=== PATIENT | female | born 1935 | race Caucasian/White ===

== ENCOUNTER 2021-08-27 13:25 | Inpatient (IN) | payer MEDICARE, MEDICAID, SELFPAY ==
[2021-08-27] VITALS (18 sets, daily range): BP systolic 91–142; BP diastolic 54–81; PULSE 57–87; RESP 18–27; TEMP 36.2–36.6; O2SAT 90–96; BMI 24.9; BMI 23.8
--- NOTE | 2021-08-27 13:27 | XRR_ITS ---
PROCEDURE INFORMATION: Exam: XR Chest Exam date and time: 08/27/2021 1:56 PM Age: 86 years old Clinical indication: Other: AMS TECHNIQUE: Imaging protocol: XR of the chest. Views: 1 view. COMPARISON: No relevant prior studies available. FINDINGS: Lungs: Bilateral prominence of bronchovascular markings possibly mild heart failure and edema. No focal consolidations. Pleural spaces: Unremarkable. No pleural effusion. No pneumothorax. Heart/Mediastinum: Cardiomegaly. Bones/joints: Unremarkable. XR/XR chest 1V portable [id number] IMPRESSION: Questionable mild heart failure or fluid overload.
--- NOTE | 2021-08-27 13:27 | CT_ITS ---
WS: [id number] CT HEAD TECHNIQUE: Noncontrast CT of the head obtained from the skullbase to the vertex. CLINICAL INFORMATION: ams COMPARISON: None. DLP: 1171.[address] scans at [facility] use at least one of these dose optimization techniques: automated e xposure control; mA and/or kV adjustment per patient size (includes targeted exams where dose is matc hed to clinical indication); or iterative reconstruction. FINDINGS: Images degraded by patient motion. No evidence of intracranial hemorrhage or mass effect. Ventricular system and basal cisterns are holm nt. Moderate small vessel changes with moderate parenchymal volume loss. Intracranial vascular calcif ication. Chronic lacunar infarcts in the LEFT pinon radiata. Paranasal sinuses and mastoid air cells are well aerated. .Normal visualized soft tissues. CT/CT head wo con* [id number] IMPRESSION: 1. No evidence of intracranial hemorrhage or mass effect. 2. Moderate small vessel changes. Moderate parenchymal volume loss. 3. Chronic lacunar infarcts in the LEFT pinon radiata. 4. No acute intracranial findings.
--- NOTE | 2021-08-27 13:28 | ECG_ITS ---
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 Measurements Intervals [place] Rate: 58 P: 62 [place]: 186 QRS: 1 QRSD: 94 T: 60 QT: 407 QTc: 401 Interpretive Statements SINUS BRADYCARDIA POSSIBLE SEPTAL MYOCARDIAL INFARCTION , PROBABLY OLD [30 ms Q WAVE IN V1/V2] No previous ECG available for comparison Electronically Signed On 08-27-2021 17:51:08 CDT by Kranthi Larsen M.D. [email or web address]
--- NOTE | 2021-08-27 13:34 | ED_ITS ---
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 Patient came from [facility] and was last seen normal earlier this morning. Since this morning, patient has become confused and only verbalizes the word yes. Patient is reported to be coughing and with mild increased work of breathing per EMS. Patient is noted to be satting 86 on room air. Patient has no known history of COPD or asthma. Onset: earlier today Duration:ongoing Location:home Severity:mild/moderate Associated symptoms: Reports confusion and dyspnea Review of Systems General: Reports: ROS unobtainable due to mental status Resp: Reports: dyspnea and non-productive cough Neuro: Reports: confusion PFSH ED PFSH: Medical History CAD (coronary artery disease) CVA (cerebral vascular accident) DNR (do not resuscitate) Hypertension Hypothyroidism Social History Smoking and tobacco status: never smoked Alcohol intake: never Substance/Drug Use: never Physical Exam HENMT: COMMON NORMALS: atraumatic HEAD & SCALP: atraumatic MOUTH: moist mucous membranes not abnormal Eye: COMMON NORMALS: conjunctivae normal CONJUNCTIVA: Yes conjunctivae normal Neck/C-Spine: COMMON NORMALS: full ROM and supple Resp: OTHER: + Mild increased work of breathing, mild coarse breath sounds bilaterally Cardio: COMMON NORMALS: regular rate RATE: regular rate GI: COMMON NORMALS: Soft to palpation and non-tender PALPATION: Yes Soft to palpation Extremity: COMMON NORMALS: full ROM Neuro: SENSORIUM/ORIENTATION: Yes Orientation impaired OTHER: + Verbalizes to use yes only, chronic right sided hemiplegia, rest of neuro exam limited due to altered mental status Psych: OTHER: Unable to assess due to AMS Course Vital Signs: Vital signs: Vital Signs Temperature 97.8 F 08/27/21 14:09 Pulse Rate 57 L 08/27/21 14:09 Respiratory Rate 24 H 08/27/21 14:09 Blood Pressure 132/65 08/27/21 14:09 Pulse Oximetry 94 08/27/21 14:09 MDM - General Adult Medical Decision Making 86-year-old female with history of DNR, prior CVA with right-sided residual weakness, hypertension, hypothyroidism, CAD presenting to the emergency room with concerns of acute onset altered mental status. On physical exam, patient noted to have coarse breath sounds. Patient is requiring 1 L of oxygen to get O2 sat between 92 to 94%. No significant increased work of breathing. Patient received DuoNeb in the emergency room. No prior history of COPD or asthma. Lab work-up for altered mental status is largely unremarkable. Patient is found to have white count 13.1. Swabs are pending. X-ray chest negative for any acute findings. CT head negative for acute pathologies. UA negative for UTI. Disposition: admission Lab Data : 08/27/21 13:45 08/27/21 13:45 Radiology Impressions Chest X-Ray 08/27/21 13:27 IMPRESSION: Questionable mild heart failure or fluid overload. Head CT 08/27/21 13:27 IMPRESSION: 1. No evidence of intracranial hemorrhage or mass effect. 2. Moderate small vessel changes. Moderate parenchymal volume loss. 3. Chronic lacunar infarcts in the LEFT pinon radiata. 4. No acute intracranial findings. Laboratory Results WBC 13.1 10^3/uL (4.0-10.0) H 08/27/21 13:45 RBC 4.36 10^6/uL (4.1-5.3) 08/27/21 13:45 Hgb 12.9 g/dL (11.5-15.3) 08/27/21 13:45 Hct 40.9 % (37.0-47.0) 08/27/21 13:45 MCV 93.8 fl (81-99) 08/27/21 13:45 MCH 29.6 pg (28.0-34.0) 08/27/21 13:45 MCHC 31.5 g/dL (30.0-36.0) 08/27/21 13:45 RDW 13.0 % (12.1-15.1) 08/27/21 13:45 Plt Count 232 10^3/cmm (130-400) 08/27/21 13:45 MPV 11.0 fL (7.4-10.4) H 08/27/21 13:45 Neut % (Auto) 84.3 % 08/27/21 13:45 Lymph % (Auto) 6.0 % 08/27/21 13:45 [place] % (Auto) 8.3 % 08/27/21 13:45 Eos % (Auto) 0.9 % 08/27/21 13:45 Baso % (Auto) 0.2 % 08/27/21 13:45 Neut # (Auto) 11.03 10^3/uL (1.8-7.7) H 08/27/21 13:45 Lymph # (Auto) 0.8 10^3/uL (0.8-4.8) 08/27/21 13:45 [place] # (Auto) 1.1 10^3/uL (0.2-0.9) H 08/27/21 13:45 Eos # (Auto) 0.1 10^3/uL (0.0-0.8) 08/27/21 13:45 Baso # (Auto) 0.0 10^3/uL (0.0-0.1) 08/27/21 13:45 Nucleated RBC % (auto) 0 % 08/27/21 13:45 Nucleated RBCs # 0.0 /100WBC 08/27/21 13:45 Specimen Type Arterial 08/27/21 14:11 Sample Site Brachial, right 08/27/21 14:11 ABG pH 7.31 (7.35-7.45) L 08/27/21 14:11 ABG pCO2 57.5 mmHg (35-45) H 08/27/21 14:11 ABG pO2 74.5 mmHg (80.0-100.0) L 08/27/21 14:11 ABG HCO3 29.2 mmol/L (22-26) H 08/27/21 14:11 ABG O2 Saturation 95.0 08/27/21 14:11 ABG Base Excess 1.9 mmol/L (-2.0-2.0) 08/27/21 14:11 Harry Test Pos 08/27/21 14:11 A-a O2 Gradient 3.3 mmHg (5-10) L 08/27/21 14:11 Hematocrit 36.7 % (37-47) L 08/27/21 14:11 Hgb O2 Saturation 93.7 % (95-100) L 08/27/21 14:11 Carboxyhemoglobin 0.9 %THgb (0.4-20.1) 08/27/21 14:11 Methemoglobin 0.4 % (0.4-1.5) 08/27/21 14:11 Total Hemoglobin 12.0 g/dL (12-16) 08/27/21 14:11 Sodium 137.0 mmol/L (131-143) 08/27/21 14:11 Potassium 4.9 mmol/L (3.5-5.0) 08/27/21 14:11 Glucose 98.0 mg/dL (70-115) 08/27/21 14:11 Ionized Calcium 1.2 mmol/L (1.1-1.4) 08/27/21 14:11 O2 Delivery Device Nc 08/27/21 14:11 O2 Liters/Min 1.0 % 08/27/21 14:11 FiO2 24.0 % 08/27/21 14:11 Sales Service Supervisor ID Bd 08/27/21 14:11 Sodium 136 mmol/L (136-145) 08/27/21 13:45 Potassium 5.0 mmol/L (3.5-5.1) 08/27/21 13:45 Chloride 100 mmol/L (98-107) 08/27/21 13:45 Carbon Dioxide 28 mmol/L (22-29) 08/27/21 13:45 Anion Gap 13.0 (5-19) 08/27/21 13:45 BUN 16 mg/dL (8-23) 08/27/21 13:45 Creatinine 0.5 mg/dL (0.5-0.9) 08/27/21 13:45 GFR Calculation Not Reportable 08/27/21 13:45 Glucose 88 mg/dL (65-115) 08/27/21 13:45 POC Glucose 90 mg/dL (70-110) 08/27/21 13:47 Calculated Osmolality 283 mOsm/kg (285-295) L 08/27/21 13:45 Calcium 8.3 mg/dL (8.5-10.5) L 08/27/21 13:45 Total Bilirubin 0.2 mg/dL (0.15-1.2) 08/27/21 13:45 AST 19 U/L (0-32) 08/27/21 13:45 ALT 14 U/L (0-33) 08/27/21 13:45 Alkaline Phosphatase 108 IU/L (35-105) H 08/27/21 13:45 Ammonia 20 umol/L (11-51) 08/27/21 13:45 Troponin T Baseline 8 ng/L (0-10) 08/27/21 13:45 NT-Pro-B Natriuret Pep 380 pg/mL (0-450) 08/27/21 13:45 Total Protein 7.0 g/dL (6.6-8.7) 08/27/21 13:45 Albumin 3.4 g/dL (3.5-5.2) L 08/27/21 13:45 Globulin 3.6 g/dL (1.3-4.6) 08/27/21 13:45 Lipase 36 U/L (13-60) 08/27/21 13:45 TSH 17.29 uIU/mL (0.27-4.20) H 08/27/21 13:45 Free T4 1.10 ng/dL (0.82-1.77) 08/27/21 13:45 Urine Color Yellow (Yellow) 08/27/21 13:55 Urine Appearance Sl hazy (CLEAR) 08/27/21 13:55 Urine pH 6 (5-7) 08/27/21 13:55 Ur Specific [place] 1.020 (1.005-1.030) 08/27/21 13:55 Urine Protein Neg (Negative) 08/27/21 13:55 Urine Glucose (UA) Norm (Normal) 08/27/21 13:55 Urine Ketones Negative (Negative) 08/27/21 13:55 Urine Blood Neg (Negative) 08/27/21 13:55 Urine Nitrate Negative (Negative) 08/27/21 13:55 Urine Bilirubin Neg (Negative) 08/27/21 13:55 Urine Urobilinogen Norm mg/dL (Negative) 08/27/21 13:55 Ur Leukocyte Esterase Negative (Negative) 08/27/21 13:55 Urine RBC Rare /hpf (0-2) 08/27/21 13:55 Urine WBC Rare /hpf (0-5) 08/27/21 13:55 Ur Squamous Epith Cells 15-25 /hpf (0-5) H 08/27/21 13:55 Amorphous Sediment Not Reportable 08/27/21 13:55 Urine Bacteria Trace /hpf (NONE) 08/27/21 13:55 Salicylates 1.2 mg/dL (3-10) L 08/27/21 13:45 Acetaminophen < 5.0 ug/mL (10-30) L 08/27/21 13:45 Imaging Data Other Imaging: Radiologist's impression: [facility] [address] [place] [address] CT Scan Report Signed Patient: Candy Chin Unit #: [id number] : 1935 Age/Sex: 86 / F ADM Date: 08/27/21 Loc: ER Room/Bed: Attending Dr: Ordering Provider/Ordering MD: Guanako Aguilar MD Date of Service: 08/27/21 Procedure(s): CT head wo con* [id number] Accession Number(s): [id number] Report Number: [id number] WS: [id number] CT HEAD TECHNIQUE: Noncontrast CT of the head obtained from the skullbase to the vertex. CLINICAL INFORMATION: ams COMPARISON: None. DLP: 1171.[address] scans at [facility] use at least one of these dose optimization techniques: automated exposure control; mA and/or kV adjustment per patient size (includes targeted exams where dose is matched to clinical indication); or iterative reconstruction. FINDINGS: Images degraded by patient motion. No evidence of intracranial hemorrhage or mass effect. Ventricular system and basal cisterns are patent. Moderate small vessel changes with moderate parenchymal volume loss. Intracranial vascular calcification. Chronic lacunar infarcts in the LEFT pionn radiata. Paranasal sinuses and mastoid air cells are well aerated. .Normal visualized soft tissues. CT/CT head wo con* [id number] IMPRESSION: ? 1.? No evidence of intracranial hemorrhage or mass effect. 2.? Moderate small vessel changes. Moderate parenchymal volume loss. 3.? Chronic lacunar infarcts in the LEFT pinon radiata. 4.? No acute intracranial findings. ? Dictated By: Rickie Atkinson MD Signed By: Rickie Atkinson MD Signed Date/Time: 08/27/21 1456 DD/ [address] [address] XRay Report Signed Patient: Candy Chin Unit #: [id number] : 1935 Age/Sex: 86 / F ADM Date: 08/27/21 Loc: ER Room/Bed: Attending Dr: Ordering Provider/Ordering MD: Guanako Aguilar MD Date of Service: 08/27/21 Procedure(s): XR chest 1V portable [id number] Accession Number(s): [id number] Report Number: [id number] PROCEDURE INFORMATION: Exam: XR Chest Exam date and time: 08/27/2021 1:56 PM Age: 86 years old Clinical indication: Other: AMS TECHNIQUE: Imaging protocol: XR of the chest. Views: 1 view. COMPARISON: No relevant prior studies available. FINDINGS: Lungs: Bilateral prominence of bronchovascular markings possibly mild heart failure and edema.? No focal consolidations. Pleural spaces: Unremarkable. No pleural effusion. No pneumothorax. Heart/Mediastinum: Cardiomegaly. Bones/joints: Unremarkable. XR/XR chest 1V portable [id number] IMPRESSION: Questionable mild heart failure or fluid overload. ? Dictated By: Desean Teran MD Signed By: Desean Teran MD Signed Date/Time: 08/27/21 1451 DD/ 1356 Discharge Plan Discharge Patient Disposition: Admitted As Inpatient Clinical Impression: Acute respiratory distress, Dyspnea Condition: Stable Coding Level of Care Code ED [employer] Rep[employer]r for Chg Fwd Exam Detailed
[2021-08-27 13:50] LABS: Glucose Point of Care 90 mg/dL (70-110)
[2021-08-27 13:51] LABS: Basophils % 0.2 %; Eosinophils # 0.1 10^3/uL (0.0-0.8); Eosinophils % 0.9 %; Hematocrit 40.9 % (37.0-47.0); Hemoglobin 12.9 g/dL (11.5-15.3); Lymphocytes # 0.8 10^3/uL (0.8-4.8); Mean Corpuscular HGB Conc 31.5 g/dL (30.0-36.0); Mean Corpuscular Hemoglobin 29.6 pg (28.0-34.0); Mean Corpuscular Volume 93.8 fl (81-99); Monocytes # 1.1 10^3/uL (0.2-0.9); Monocytes % 8.3 %; Neutrophils # 11.03 10^3/uL (1.8-7.7); Neutrophils % 84.3 %; Nucleated Red Blood Cells % 0 %; Platelet Count 232 10^3/cmm (130-400); Red Blood Count 4.36 10^6/uL (4.1-5.3); White Blood Count 13.1 10^3/uL (4.0-10.0)
[2021-08-27] MEDS: sodium chloride 0.9% 500 ML IV (14:12)
[2021-08-27 14:16] LABS: Troponin(5th) Baseline 8 ng/L (0-10)
[2021-08-27 14:21] LABS: Ammonia 20 umol/L (11-51)
[2021-08-27 14:22] LABS: ABG PCO2 57.5 mmHg (35-45); ABG PH Result 7.31 (7.35-7.45); Alveolar-Arterial Oxygen Gradi 3.3 mmHg (5-10); Arterial Blood Gas Hematocrit 36.7 % (37-47); Base Excess ABG 1.9 mmol/L (-2.0-2.0); Blood Gas Allen Test Pos; Blood Gas Operator Identificat BD; Blood Gas Sample Site Brachial, right; Blood Gas Sample Type Arterial; Carboxyhemoglobin 0.9 %THgb (0.4-20.1); HCO3 ABG 29.2 mmol/L (22-26); HGB O2 Sat 93.7 % (95-100); Ionized Calcium Level - ABG 1.2 mmol/L (1.1-1.4); Methemoglobin 0.4 % (0.4-1.5); Oxygen Device NC; PO2 ABG 74.5 mmHg (80.0-100.0); Potassium Level - ABG 4.9 mmol/L (3.5-5.0)
[2021-08-27 14:25] LABS: Alanine Aminotransferase 14 U/L (0-33); Albumin Level 3.4 g/dL (3.5-5.2); Alkaline Phosphatase 108 IU/L (35-105); Aspartate Amino Transferase 19 U/L (0-32); Blood Urea Nitrogen 16 mg/dL (8-23); Calcium 8.3 mg/dL (8.5-10.5); Carbon Dioxide 28 mmol/L (22-29); Chloride 100 mmol/L (98-107); Creatinine Clr Calc Pharmacy 46.2454; Globulin 3.6 g/dL (1.3-4.6); Glucose 88 mg/dL (65-115); Lipase 36 U/L (13-60); NT Pro B Type Natriuretic Pept 380 pg/mL (0-450); Osmolality Calculated 283 mOsm/kg (285-295); Salicylate 1.2 mg/dL (3-10); Sodium 136 mmol/L (136-145); Thyroid Stimulating Hormone 17.29 uIU/mL (0.27-4.20); Total Bilirubin 0.2 mg/dL (0.15-1.2)
[2021-08-27 14:32] LABS: Acetaminophen < 5.0 ug/mL (10-30)
[2021-08-27 14:56] LABS: Add Urine Microscopic? YES; Bilirubin Urine Neg (Negative); Blood Urine Neg (Negative); Glucose Urine UA Norm (Normal); Ketones Urine Negative (Negative); Leukocyte Esterase Urine Negative (Negative); Nitrate Urine Negative (Negative); Protein Urine Neg (Negative); Urine Appearance SL Hazy (CLEAR); Urine Color Yellow (Yellow); Urobilinogen Urine Norm (Negative); pH Urine 6 (5-7)
[2021-08-27 15:03] LABS: Bacteria Urine TRACE /hpf; RBC Urine RARE /hpf (0-2); Squamous Epithelial Cell Urine 15-25 /hpf (0-5); WBC Urine RARE /hpf (0-5)
[2021-08-27 15:04] LABS: Add Urine Culture? No
--- NOTE | 2021-08-27 15:28 | ECG_ITS ---
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 Measurements Intervals [place] Rate: 58 P: 64 [place]: 178 QRS: -6 QRSD: 90 T: 58 QT: 418 QTc: 411 Interpretive Statements SINUS BRADYCARDIA WITH OCCASIONAL SUPRAVENTRICULAR PREMATURE COMPLEXES Compared to ECG 08/27/2021 13:38:56 Myocardial infarct finding no longer present Electronically Signed On 08-27-2021 17:57:33 CDT by Karnthi Larsen M.D. [id number]
--- NOTE | 2021-08-27 16:00 | CTR_ITS ---
PROCEDURE INFORMATION: Exam: CTA Chest With Contrast Exam date and time: 08/27/2021 4:30 PM Age: 86 years old Clinical indication: Condition or disease; Lung condition and disease; Pneumonia; Aspiration; Additional info: Rule out pe, pneumonia, questionable aspiration? Right lower lobe infiltrate. TECHNIQUE: Imaging protocol: Computed tomographic angiography of the chest with contrast. 3D rendering (Not supervised by radiologist): MIP and/or 3D reconstructed images were created by the technologist. Radiation optimization: All CT scans at this facility use at least one of these dose optimization techniques: automated exposure control; mA and/or kV adjustment per patient size (includes targeted exams where dose is matched to clinical indication); or iterative reconstruction. Contrast material: OMNI; Contrast volume: 70 ml; Contrast route: INTRAVENOUS (IV); COMPARISON: CR XR chest 1V portable [id number] 08/27/2021 1:56 PM RADIATION DOSE METRICS: Total DLP (mGy-cm): 484.41 FINDINGS: Pulmonary arteries: Normal. No pulmonary emboli. Aorta: No aortic aneurysm. No aortic dissection. Lungs: Scattered scarring. No consolidation. No masses. Pleural spaces: Unremarkable. No pneumothorax. No pleural effusion. Heart: Coronary artery calcifications. No cardiomegaly. No pericardial effusion. Lymph nodes: Unremarkable. No enlarged lymph nodes. Diaphragm: Moderate-sized hiatal hernia noted. Bones/joints: Severe scoliosis. No acute fracture. Soft tissues: Unremarkable. CT/CT angio chest [id number] IMPRESSION: Negative for pulmonary embolism. No acute findings.
[2021-08-27 16:09] LABS: Adenovirus Not Detected (NOT DETECT); Chlamydia Pneumoniae Not Detected (NOT DETECT); Coronavirus 229E,HKU1,NL63,OC4 Not Detected (NOT DETECT); Human Metapneumovirus Not Detected (NOT DETECT); Human Rhinovirus/Enterovirus Not Detected (NOT DETECT); Influenza A Not Detected (NOT DETECT); Influenza A H1 Not Detected (NOT DETECT); Influenza A H1-2009 Not Detected (NOT DETECT); Influenza A H3 Not Detected (NOT DETECT); Influenza B Not Detected (NOT DETECT); Mycoplasma Pneumoniae Not Detected (NOT DETECT); Parainfluenza Virus Type 1 Not Detected (NOT DETECT); Parainfluenza Virus Type 2 Not Detected (NOT DETECT); Parainfluenza Virus Type 3 Not Detected (NOT DETECT); Parainfluenza Virus Type 4 Not Detected (NOT DETECT); Respiratory Syncytial Virus A Not Detected (NOT DETECT); Respiratory Syncytial Virus B Not Detected (NOT DETECT); SARS-COV-2 Not Detected (NOT DETECT)
--- NOTE | 2021-08-27 16:11 | USCV_ITS ---
Candy Chin Age: 86 Gender: F : 1935 Exam Date: 08/27/2021 16:37 Ordering Phys: Magda Sommers MD Technologist: Pedro Luis Roberson Exam Location: [facility] Indication: rule out heart faliure BP: 118 / 71 HR: 121 Rhythm: Sinus Technical Quality: Adequate MEASUREMENTS (Male / Female) Normal Values 2D ECHO LV Diastolic Diameter PLAX 2.1 cm 4.2 - 5.9 / 3.9 - 5.3 cm LV Systolic Diameter PLAX 1.3 cm IVS Diastolic Thickness 0.8 cm 0.6 - 1.0 / 0.6 - 0.9 cm IVS Systolic Thickness 0.8 cm LVPW Diastolic Thickness 1.4 cm 0.6 - 1.0 / 0.6 - 0.9 cm LVPW Systolic Thickness 1.3 cm LVOT Diameter 2.0 cm LV Ejection Fraction 2D Teich 67.4 % LV Ejection Fraction MOD 2C 72.0 % LV Ejection Fraction 2C AL 72.1 % LA Width 3.5 cm LA Height 3.8 cm RA Width 3.0 cm RA Height 3.8 cm Aorta at Sinotubular Diameter 2.6 cm IVC Diameter 1.5 cm M-MODE Aortic Annulus Diameter 2.7 cm MV E Point Septal Separation 0.3 cm DOPPLER AV Peak Velocity 136.7 cm/s LVOT Peak Velocity 140.0 cm/s AV Area Cont Eq vti 2.9 cm squared AV Area Cont Eq pk 3.3 cm squared MV Peak Velocity 116.0 cm/s MV Area PHT 4.1 cm squared Mitral E to A Ratio 0.8 MV E' Velocity 41.0 cm/s Mitral E to MV E' Ratio 7.4 Mitral E to LV E' Lateral Ratio 7.2 Mitral E to LV E' Septal Ratio 7.7 TR Peak Velocity 319.6 cm/s TR Peak Gradient 40.8 mmHg TR Mean Velocity 233.6 cm/s TR Mean Gradient 23.2 mmHg TR Velocity Time Integral 97.3 cm RV Acceleration Time 0.1 s RV Ejection Time 0.3 s RV AcT/ET 0.4 FINDINGS Left Ventricle Normal left ventricular size and systolic function, EF 70 %. No regional wall motion abnormalities. Grade I/IV diastolic dysfunction (abnormal relaxation filling pattern), normal to mildly elevated filling pressures. Right Ventricle The right ventricle is normal in size and function. Right Atrium The right atrium is normal in size. Left Atrium The left atrium is normal in size. Mitral Valve Thickened mitral valve. Trace mitral valve regurgitation. Aortic Valve Thickened aortic valve. Trace aortic valve regurgitation. Tricuspid Valve Trace tricuspid valve regurgitation. Pulmonic Valve No gross abnormalities noted Pericardium Normal pericardium without effusion. Aorta Normal ascending aorta dimension. IVC Normal IVC dimension CONCLUSIONS Normal left ventricular size and systolic function, EF 70 %. No regional wall motion abnormalities. Grade I/IV diastolic dysfunction (abnormal relaxation filling pattern), normal to mildly elevated filling pressures. Thickened mitral valve. Trace mitral valve regurgitation. Thickened aortic valve. Trace aortic valve regurgitation. Trace tricuspid valve regurgitation. No similar previous studies are available for comparison Dr Radha Jesus MD FACC (Electronically Signed) Final Date: 28 August 2021 09:11 S
--- NOTE | 2021-08-27 16:20 | PM.HP ---
Providers/Chief Complaint Primary Care Provider: Sriram Nunn Chief Complaint: Altered mental status History of Present Illness Candy Chin is a 86 year old female with past medical history of coronary artery disease, CVA, hypertension, hypothyroidism with chronic right-sided hemiplegia from prior stroke presented to the emergency room concerns of altered mental status and difficulty breathing. Patient is known to [facility] and was last seen normal earlier today. assisted records state that patient became at her head back with eyes closed and would not wake up. Normally at baseline she says yes to any question asked. They state that she is able to solve crossword puzzles and do some of her ADLs but now is confused. Patient was reported to be coughing with mild increased work of breathing per EMS. Saturation 87% on room air. No known history of COPD or asthma. This history was obtained from ER physician and jail documentation. Patient is unable to provide any history. Due to her previous stroke she only answers yes to any question that is asked. She is saturating 96 to 97% on 2 L nasal cannula at this time. ABG 7.3 done on room air on arrival to ER. Chest x-ray shows mild cardiomegaly with possible pulmonary congestion. CT chest pending. In the ER patient was given pharmacy normal saline bolus. COVID swab negative, influenza swab negative. Urine analysis unremarkable. WBC 13.1. Respiratory rate 20-22 CT head did not show any evidence of intracranial hemorrhage or mass-effect. Moderate small vessel changes present. Lacunar infarcts in left pinon radiata are present. No acute intracranial findings. ER physician spoke to patient's son on the phone who stated patient was a DO NOT RESUSCITATE but was okay with intubation if needed for short-term and okay with bronchoscopy if needed. I have tried to reach out to the family several times after that to discuss this but have not been able to get a hold of anybody. Unable to leave a voicemail on the son's number. [id number]'s number was also tried over the phone but unable to get a hold of anybody. As of now patient will be DNR but okay to intubate as per previous discussion of ER physician with the patient's son. He also told me patient's son lives in [place] and is physically not presenting [place]. Medications/Allergies Home Medications Medication Instructions Recorded Confirmed Last Taken Type acetaminophen 325 mg tablet 325 mg PO QID PRN 08/27/21 08/27/21 Unknown History amlodipine 5 mg tablet 5 mg PO BID 08/27/21 08/27/21 08/27/21 08:00 History aspirin 325 mg tablet,delayed 325 mg PO DAILY 08/27/21 08/27/21 08/27/21 08:00 History release atorvastatin 40 mg tablet 40 mg PO QPM 08/27/21 08/27/21 08/26/21 History bisacodyl 10 mg rectal suppository 10 mg LA Q24H PRN 08/27/21 08/27/21 Unknown History bisacodyl 5 mg tablet,delayed 20 mg PO DAILY PRN 08/27/21 08/27/21 Unknown History release carboxymethylcellulose sodium 1 % 1 drp OPHTHALMIC (EYE) BID 08/27/21 08/27/21 08/27/21 08:00 History eye drops (Artificial Tears (carboxymethylcellulose)) gabapentin 300 mg capsule 300 mg PO TID 08/27/21 08/27/21 08/27/21 08:00 History ipratropium 0.5 mg-albuterol 3 mg 3 ml INHALATION Q6H PRN 08/27/21 08/27/21 Unknown History (2.5 mg base)/3 mL nebulization soln levothyroxine 88 mcg tablet 88 mcg PO DAILY 08/27/21 08/27/21 08/27/21 08:00 History lisinopril 20 mg tablet 20 mg PO BID 08/27/21 08/27/21 08/27/21 08:00 History magnesium hydroxide 400 mg/5 mL 15 ml PO DAILY PRN 08/27/21 08/27/21 Unknown History oral suspension (Milk of Magnesia) multivitamin with minerals-iron 15 ml PO DAILY 08/27/21 08/27/21 08/27/21 History fumarate 9 mg iron/15 mL oral liquid (Multi Vitamin) potassium chloride 20 mEq 20 meq PO BID 08/27/21 08/27/21 08/27/21 08:00 History tablet,extended release propranolol 10 mg tablet 10 mg PO BID 08/27/21 08/27/21 08/27/21 08:00 History sennosides 8.6 mg-docusate sodium 1 tab-cap PO BID PRN 08/27/21 08/27/21 Unknown History 50 mg tablet (Senna Plus) sodium phosphates 19 gram-7 118 ml LA DAILY PRN 08/27/21 08/27/21 Unknown History gram/118 mL enema (Enema) vit A 300 mcg-C 200 mg-E 27 1 tab PO DAILY 08/27/21 08/27/21 08/27/21 History mg-lutein 2 mg and minerals tablet (I-Ned) PFSH Acute PFSH: Medical History (Updated 08/27/21 @ 16:32 by Magda Sommers MD) CAD (coronary artery disease) CVA (cerebral vascular accident) DNR (do not resuscitate) Hypertension Hypothyroidism Social History Smoking and tobacco status: never smoked Alcohol intake: never Substance/Drug Use: never Vitals/I&O/Wt Last Vital Signs Temp 97.8 F 08/27/21 14:09 Pulse 58 L 08/27/21 15:30 Resp 24 H 08/27/21 15:30 BP 118/71 08/27/21 15:30 Pulse Ox 93 08/27/21 15:30 Weight last 48 hrs Weight 65.771 kg Physical Exam Narrative: General: Alert, laying in bed with eyes open response to yes to every question asked patient seen appearing comfortable but using accessory muscles a little bit. On 2 L nasal cannula saturating 97%. HEENT: Normocephalic, atraumatic, EOMI, Cardio: Regular rate rhythm, normal S1-S2, no murmurs Respiratory: Fair bilateral air entry with bilateral crackles at bases, no wheezes or gross rhonchi appreciated GI: Abdomen soft, nontender, nondistended, bowel sounds + Extremities: Trace bilateral lower extremity edema no cyanosis Skin: No skin breakdown on back, checked with nurse. Data : 08/27/21 13:45 08/27/21 13:45 A&P Assessment and plan (1) Acute respiratory distress: Status: Acute (2) Dyspnea: Status: Acute (3) CVA (cerebral vascular accident): Status: Acute (4) Hypertension: Status: Acute (5) Hypothyroidism: Status: Acute (6) DNR (do not resuscitate): Status: Acute (7) CAD (coronary artery disease): Status: Acute Plan #Possible aspiration pneumonia #Fluid overload/heart failure, unsure if systolic versus diastolic, will rule out #Leukocytosis most likely secondary to aspiration pneumonia #Hypothyroidism #History of stroke with right hemiparesis #History of dementia #Hypertension ? Patient did get 500 cc normal saline bolus in ER. I will check an echo ? Give Lasix 40 mg IV stat ? Patient's x-ray does show some cardiomegaly and vascular congestion ? We will check CT scan chest, will rule out PE as well ? Check sputum gram stain culture if patient able to cough up anything ? Start on Vanco and Zosyn at this time ? ABG reviewed. It was done on room air. Now patient saturating 96% on nasal cannula. ? If patient further deteriorates, we may try BiPAP versus intubation. Unsure if there was an aspiration event or this is just fluid overload. There is a history listed for coronary artery disease but I do not have any further details if she has had ever had a stent or not. ? Check BNP ? Hold all home medications until swallow evaluation -We will review CT scan and make further decisions -Troponins ordered and pending. -Slightly bradycardic, monitor on telemetry. Attempted to reach out to the family to discuss CODE STATUS. Unable to speak to anyone. ER physician did speak to son who stated that she is a DNR but okay to intubate if needed. Unable to leave voicemail as mailbox is not set up. DVT prophylaxis: Lovenox DNR, okay to intubate Attestations Medical Necessity Statement*: She will cross greater than 2 midnights for management of all of the above. She will need work-up and treatment. Rule out heart failure/pneumonia. Coding Level of Care Code Acute [employer] Solution Architect for Chg Fwd Diagnoses Acute respiratory distress R06.03 Dyspnea R06.00 CVA (cerebral vascular accident) I63.9 Hypertension I10 Hypothyroidism E03.9 DNR (do not resuscitate) Z66 CAD (coronary artery disease) I25.10
[2021-08-27] MEDS: FUROsemide 10 mg/mL SDV 4mL 40 MG IVP (16:48)
[2021-08-27] MEDS: enoxaparin 40 mg/0.4 mL Syringe SUBCUT (16:48)
[2021-08-27 16:54] LABS: Troponin 5 2HR 7.93 ng/L (0-10)
[2021-08-27] MEDS: piperacillin-tazobactam 3.375 GM in sodium chloride 0.9% (plus) 50 ML IV (16:56)
[2021-08-27 17:05] LABS: Troponin 5 2HR Delta -0.07 ABS# (0-10)
[2021-08-27] MEDS: vancomycin 500 MG in sodium chloride 0.9% (plus) 100 ML 200 MG IV (20:56)
[2021-08-27 22:23] LABS: Troponin 5 6HR 9.36 ng/L (0-10)
[2021-08-27 22:29] LABS: Troponin 5 6HR Delta 1.36 ng/L (0-12)
[2021-08-27] MEDS: iohexol 350 mg/mL 100 mL Btl IV (23:00)
--- NOTE | 2021-08-27 23:49 | PC.NURSE ---
report called to mario VANESSA 08/27/2021 [id number] on med surg
[2021-08-28] VITALS (16 sets, daily range): BP systolic 105–142; BP diastolic 65–78; PULSE 65–102; RESP 14–24; TEMP 36.1–36.9; O2SAT 90–96; BMI 24.2
[2021-08-28] MEDS: piperacillin-tazobactam 3.375 GM in sodium chloride 0.9% (plus) 50 ML IV ×3 (00:25→17:24)
[2021-08-28] MEDS: ipratropium-albuterol 3 mL Neb INHALATION ×2 (02:48→16:36)
[2021-08-28 06:14] LABS: Basophils % 0.2 %; Eosinophils % 0.3 %; Hematocrit 41.4 % (37.0-47.0); Lymphocytes # 0.7 10^3/uL (0.8-4.8); Lymphocytes % 5.6 %; Mean Corpuscular HGB Conc 31.4 g/dL (30.0-36.0); Mean Corpuscular Hemoglobin 29.7 pg (28.0-34.0); Mean Corpuscular Volume 94.5 fl (81-99); Mean Platelet Volume 11.5 fL (7.4-10.4); Monocytes % 7.7 %; Neutrophils # 11.11 10^3/uL (1.8-7.7); Nucleated Red Blood Cells % 0 %; Platelet Count 210 10^3/cmm (130-400); Red Blood Count 4.38 10^6/uL (4.1-5.3); Red Cell Distribution Width 13.2 % (12.1-15.1); White Blood Count 12.9 10^3/uL (4.0-10.0)
--- NOTE | 2021-08-28 06:22 | PC.ADMIT ---
[address] Admission Note: The patient,Candy Chin,86 y/o, was given written information regarding hospital policies, unit procedures and contact persons. Patient's smoking status: never smoked. Vital Signs - 8 hr 08/27/21 22:30 08/27/21 22:45 08/27/21 23:00 Temperature Pulse Rate 62 67 68 Respiratory Rate 21 H 21 H 20 H Blood Pressure 105/65 91/54 114/66 Pulse Oximetry 94 93 94 08/27/21 23:15 08/27/21 23:30 08/28/21 00:00 Temperature 97 F L Pulse Rate 66 67 71 Respiratory Rate 22 H 21 H 14 Blood Pressure 114/66 112/59 108/67 Pulse Oximetry 93 93 96 08/28/21 02:48 08/28/21 02:52 08/28/21 02:53 Temperature Pulse Rate 73 89 Respiratory Rate 24 H Blood Pressure Pulse Oximetry 94 94 08/28/21 04:00 08/28/21 05:53 Temperature 97.2 F L Pulse Rate 69 70 Respiratory Rate 18 Blood Pressure 105/65 Pulse Oximetry 90
--- NOTE | 2021-08-28 06:22 | PC.NURSE ---
Assessment done, see chart. Received pt from ICU. Update given to son on phone. Will continue to monior
[2021-08-28 06:31] LABS: Alanine Aminotransferase 15 U/L (0-33); Albumin Level 3.7 g/dL (3.5-5.2); Alkaline Phosphatase 115 IU/L (35-105); Blood Urea Nitrogen 12 mg/dL (8-23); Calcium 8.5 mg/dL (8.5-10.5); Carbon Dioxide 32 mmol/L (22-29); Chloride 94 mmol/L (98-107); Creatinine Clr Calc Pharmacy 45.6779; Globulin 3.1 g/dL (1.3-4.6); Glucose 95 mg/dL (65-115); Osmolality Calculated 282 mOsm/kg (285-295); Sodium 136 mmol/L (136-145); Total Bilirubin 0.3 mg/dL (0.15-1.2); Total Protein 6.8 g/dL (6.6-8.7)
[2021-08-28] MEDS: vancomycin 500 MG in sodium chloride 0.9% (plus) 100 ML 200 MG IV ×2 (06:38→16:45)
[2021-08-28 07:11] LABS: Anion Gap 14.5 (5-19); Potassium 4.5 mmol/L (3.5-5.1)
[2021-08-28 07:12] LABS: Aspartate Amino Transferase 23 U/L (0-32)
--- NOTE | 2021-08-28 07:37 | CTR_ITS ---
PROCEDURE INFORMATION: Exam: CT Abdomen And Pelvis Without Contrast Exam date and time: 08/28/2021 9:38 AM Age: 86 years old Clinical indication: Abdominal pain; Additional info: Unable to provide HX, R/O intrabdomnal infection TECHNIQUE: Imaging protocol: Computed tomography of the abdomen and pelvis without contrast. Radiation optimization: All CT scans at this facility use at least one of these dose optimization techniques: automated exposure control; mA and/or kV adjustment per patient size (includes targeted exams where dose is matched to clinical indication); or iterative reconstruction. COMPARISON: CT angio chest [id number] 08/27/2021 4:30 PM RADIATION DOSE METRICS: Total DLP (mGy-cm): 1036.84 FINDINGS: Lungs: Perihilar atelectasis. Heart: The visualized heart is within normal limits for size. There is no evidence of pericardial abnormality. Liver: The liver is normal in size and contour. Gallbladder and bile ducts: The gallbladder is distended with normal wall thickness and does not demonstrate calcified gallstones. No intra- or extra-hepatic biliary ductal dilatation. Pancreas: The pancreas appears normal. Spleen: The spleen appears normal. Adrenal glands: The adrenals appear normal. Kidneys and ureters: Simple appearing cyst in the left kidney. No signs of urinary obstruction. Stomach and bowel: Large hiatal hernia with the majority of the stomach contained within the chest. The small bowel loops are not abnormally dilated. Prominent sigmoid diverticulosis without evidence of acute diverticulitis. Appendix: No signs of appendicitis. Intraperitoneal space: No ascites or significant fluid collection. Vasculature: The aorta is nonaneurysmal. The IVC appears normal. Lymph nodes: There are no enlarged lymph nodes. Urinary bladder: De Jesus catheter within the urinary bladder which is nondistended. Reproductive: Unremarkable as visualized. Bones/joints: Severe scoliotic curvature of the spine. Partial fusion of the L2 and L3 vertebral bodies. Soft tissues: Unremarkable. Other findings: Motion artifact limiting examination of the abdomen. CT/CT abdomen pelvis wo con [id number] IMPRESSION: 1. No acute abdominopelvic abnormality identified. 2. Large hiatal hernia with the majority of the stomach contained within the chest. 3. Prominent sigmoid diverticulosis without evidence of acute diverticulitis. 4. Severe scoliotic curvature of the spine. COMMENTS: Consistent with the [employer]'s Incidental Findings Committee white paper (J Am Bill Radiol 2018): Any incidental renal lesion less than 1 cm or classified as too small to characterize, or any incidental cystic renal lesion characterized as simple-appearing, is likely benign. No follow-up imaging is recommended for these lesions per consensus recommendations based on imaging criteria.
--- NOTE | 2021-08-28 10:28 | PC.CHAP ---
Pastoral Care Encounter/Spiritual Assessment Type of Contact [] Declined south asian history professor visit [] Patient/Family/Request visit [] Outpatient visit [] Follow-up visit [] Physician referral [] Code/Alert [x] Routine visit [] Staff referral [] Actively dying [] Patient sleeping [] Family support [] [] Out of room [] Palliative care [] [x] Receiving care in room [] Pre-surgical visit [] Trauma [] Long length of stay [] ICU visit [] Other: Relational/Emotional Strength [] Patient feels connected with others/family/visitors/staff [] Distress [] Loneliness/isolation [] Abandonment Spirituality of Patient [] Person of Hayde [] Attends Jain of their Hayde [] Believes in Prayer [] Reads Bible or Scientologist materials [] There are Spiritual issues to be addressed Senior Business Objects Developer Interventions [] Prayer [] Active listening [] Non-anxious presence [] Spiritual/emotional support [] Crisis/trauma care [] Spiritual counseling [] Bereavement support [] Provided bereavement packet [] Provided Bible/devotional materials [] Provided toy/stuffed animal, coloring book to patient or family member [] Provided Communion [] Anointing/[place] [] Salvation [] Completed spiritual assessment [] Other: Impact on Illness or Injury [] Angry [] Fearful [] Anxious [] Often cries [] Exhaustion [] Unable to work [] Unable to attend oriental orthodox [] Unable to walk/stand [] Unable to read [] Unable to drive [] Unable to eat/drink [] Unable to sleep [] Unable to be with family [] Patient intubated [] Other: Summary Time spent with patient
[2021-08-28] MEDS: pantoprazole 40 mg SDV IVP (11:25)
--- NOTE | 2021-08-28 14:18 | P.PN_ITS ---
Subjective Subjective: Seen this morning. Patient is appearing a lot better compared to admission. She is no longer having those accessory muscle use for breathing. CT chest was completed yesterday which ruled out PE. However it showed a very large hiatal hernia with majority of the stomach contained within the chest. It also showed severe scoliotic curvature of the spine. I called patient's family to discuss whether surgery is something they would even consider at this point given her age. Patient's son and [id number] clearly stated that they were not interested in surgery and they wanted the patient to be DNR/DNI at this time. They stated that yesterday they said that she could be intubated if her procedure was needed but otherwise did not want her to be intubated for respiratory distress. They also said that their daughter will be coming in to visit her today. They are currently out of town and will be back soon. Patient WBC count is down to 12.1. Swallow evaluation was completed and patient is on a pur?ed diet patient. Vitals/I&O/Wt Last Vital Signs Temp 97.4 F L 08/28/21 12:00 Pulse 68 08/28/21 12:00 Resp 22 H 08/28/21 12:00 BP 138/74 08/28/21 12:00 Pulse Ox 92 08/28/21 12:00 08/27/21 08/28/21 08/28/21 22:59 06:59 14:59 Intake Total 650 / 650 150 / 150 Output Total 1800 / 1800 800 / 2600 Balance -1150 / -1150 -800 / -1950 150 / 150 Weight last 48 hrs Weight 63.957 kg Weight 63.049 kg Weight 65.771 kg Physical Exam Narrative: General: Alert, laying in bed with eyes open response to yes to every question asked patient seen appearing comfortable On 2 L nasal cannula saturating 98% HEENT: Normocephalic, atraumatic, EOMI, Cardio: Regular rate rhythm, normal S1-S2, no murmurs Respiratory: Clear to auscultation today., no wheezes or gross rhonchi apprecia neyad GI: Abdomen soft, nontender, nondistended, bowel sounds + Extremities: Trace bilateral lower extremity edema no cyanosis Skin: No skin breakdown on back, checked with nurse Urinary Catheter Management: De Jesus: Cath Placed During This Visit: yes Reason for Continuing Indwelling Catheter: Acute Urinary Retention or Obstruction Urinary Catheter Date of Insertion: 08/27/21 Urinary Catheter Time of Insertion: 17:28 Data : 08/28/21 05:42 08/28/21 05:42 A&P Assessment and plan (1) CAD (coronary artery disease): Status: Acute (2) DNR (do not resuscitate): Status: Acute (3) Hypothyroidism: Status: Acute (4) Hypertension: Status: Acute (5) CVA (cerebral vascular accident): Status: Acute (6) Acute respiratory distress: Status: Acute (7) Dyspnea: Status: Acute Plan #Possible aspiration pneumonia #Large hiatal hernia #Chronic grade 1 diastolic heart failure #Leukocytosis most likely secondary to aspiration pneumonia #Hypothyroidism #History of stroke with right hemiparesis #History of dementia #Hypertension ? Stop IV Lasix. Patient appears euvolemic today ? Large hiatal hernia present patient's family not interested in going through with surgery. I offered him surgical consultation but they declined at this time. ? Sputum gram stain culture pending. ? Switch to ceft + azithro ? Patient will require home oxygen evaluation at discharge. I have a strong suspicion that her oxygen requirement is due to her large hiatal hernia and po ssible aspiration pneumonia. ?Reconcile patient's home medications now that swallow evaluation is complete ? Continue pur?ed diet ? DVT prophylaxis Lovenox DNR/DNI Updated family over the phone. Please see subjective for this progress note regarding conversation with family today. Attestations Medical Necessity Statement*: Patient improving and doing a lot better compared to admission. Will need IV antibiotics today and most likely discharge tomorrow back to [facility] if she continues to do well. Coding Level of Care Code Acute Programmer Operator Numerical Control for g Fwd Diagnoses CAD (coronary artery disease) I25.10 DNR (do not resuscitate) Z66 Hypothyroidism E03.9 Hypertension I10 CVA (cerebral vascular accident) I63.9 Acute respiratory distress R06.03 Dyspnea R06.00
[2021-08-28] MEDS: enoxaparin 40 mg/0.4 mL Syringe SUBCUT (16:45)
[2021-08-28] MEDS: cefTRIAXone 1,000 MG in sodium chloride 0.9% (plus) 50 ML 100 MG IV (19:25)
[2021-08-28] MEDS: azithromycin 500 MG in sodium chloride 0.9% 250 ML 250 MG IV (19:26)
[2021-08-29] VITALS (12 sets, daily range): BP systolic 104–146; BP diastolic 57–74; PULSE 67–84; RESP 18–24; TEMP 36.7–36.8; O2SAT 93–97
[2021-08-29 05:36] LABS: Basophils % 0.2 %; Eosinophils % 0.2 %; Hematocrit 40.4 % (37.0-47.0); Hemoglobin 12.3 g/dL (11.5-15.3); Lymphocytes # 0.8 10^3/uL (0.8-4.8); Lymphocytes % 6.3 %; Mean Corpuscular HGB Conc 30.4 g/dL (30.0-36.0); Mean Corpuscular Hemoglobin 29.1 pg (28.0-34.0); Mean Corpuscular Volume 95.7 fl (81-99); Mean Platelet Volume 11.7 fL (7.4-10.4); Monocytes # 0.9 10^3/uL (0.2-0.9); Monocytes % 7.4 %; Neutrophils # 10.71 10^3/uL (1.8-7.7); Neutrophils % 85.7 %; Nucleated Red Blood Cells % 0 %; Platelet Count 226 10^3/cmm (130-400); Red Blood Count 4.22 10^6/uL (4.1-5.3); Red Cell Distribution Width 13.5 % (12.1-15.1); White Blood Count 12.5 10^3/uL (4.0-10.0)
[2021-08-29 06:12] LABS: Anion Gap 14.5 (5-19); Blood Urea Nitrogen 13 mg/dL (8-23); Calcium 8.5 mg/dL (8.5-10.5); Carbon Dioxide 31 mmol/L (22-29); Chloride 96 mmol/L (98-107); Glucose 94 mg/dL (65-115); Osmolality Calculated 286 mOsm/kg (285-295); Potassium 3.5 mmol/L (3.5-5.1); Sodium 138 mmol/L (136-145)
[2021-08-29] MEDS: ipratropium-albuterol 3 mL Neb INHALATION ×2 (08:50→20:19)
[2021-08-29] MEDS: pantoprazole 40 mg SDV IVP (10:19)
[2021-08-29] MEDS: enoxaparin 40 mg/0.4 mL Syringe SUBCUT (17:29)
[2021-08-29] MEDS: cefTRIAXone 1,000 MG in sodium chloride 0.9% (plus) 50 ML 100 MG IV (17:30)
[2021-08-29] MEDS: azithromycin 500 MG in sodium chloride 0.9% 250 ML 250 MG IV (18:22)
--- NOTE | 2021-08-29 19:25 | P.PN_ITS ---
Subjective Subjective: seen this am. pt improving. she was a lot more alert and responsive today. she still answers yes to anything asked. Speech evaluated pt. She is eating now. Work with respiratory to wean down O2. Vitals/I&O/Wt Last Vital Signs Temp 98.2 F 08/29/21 15:19 Pulse 80 08/29/21 15:19 Resp 20 H 08/29/21 15:19 BP 133/74 08/29/21 15:19 Pulse Ox 96 08/29/21 15:19 08/29/21 08/29/21 08/29/21 06:59 14:59 22:59 Intake Total 0 / 754.583 120 / 120 290 / 410 Output Total 350 / 650 Balance -350 / 104.583 120 / 120 290 / 410 Weight last 48 hrs Weight 60.963 kg Weight 63.957 kg Weight 63.049 kg Physical Exam Narrative: General: Alert, laying in bed with eyes open response to yes to abiola ry question asked patient seen appearing comfortable On 2 L nasal cannula saturating 99% HEENT: Normocephalic, atraumatic, EOMI, Cardio: Regular rate rhythm, normal S1-S2, no murmurs Respiratory: Clear to auscultation today., no wheezes or gross rhonchi appreciated GI: Abdomen soft, nontender, nondistended, bowel sounds + Extremities: Trace bilateral lower extremity edema no cyanosis Skin: No skin breakdown on back, checked with nurse Urinary Catheter Management: De Jesus: Cath Placed During This Visit: yes Reason for Continuing Indwelling Catheter: Acute Urinary Retention or Obstruction Urinary Catheter Date of Insertion: 08/27/21 Urinary Catheter Time of Insertion: 17:28 Data : 08/29/21 04:36 08/29/21 04:36 A&P Assessment and plan (1) CAD (coronary artery disease): Status: Acute (2) DNR (do not resuscitate): Status: Acute (3) Hypothyroidism: Status: Acute (4) Hypertension: Status: Acute (5) CVA (cerebral vascular accident): Status: Acute (6) Dyspnea: Status: Acute (7) Acute respiratory distress: Status: Acute Plan #Aspiration pneumonia #Large hiatal hernia #Chronic grade 1 diastolic heart failure #Leukocytosis most likely secondary to aspiration pneumonia #Hypothyroidism #History of stroke with right hemiparesis #History of dementia #Hypertension ? Patient appears euvolemic today ? Large hiatal hernia present patient's family not interested in going through with surgery.? I offered them surgical consultation but they declined at this time. ? Sputum gram stain culture pending. ? Continue ceft + azithro ? Patient will require home oxygen evaluation at discharge.? I have a strong suspicion that her oxygen requirement is due to her large hiatal hernia and possible aspiration pneumonia. ?Reconcile patient's home medications now that swallow evaluation is complete. Adjustment to dosages made. ? Continue pur?ed diet ? DVT prophylaxis Lovenox DNR/DNI Possible DC in AM back to nursing facility as long as pt continues to improve. Attestations Medical Necessity Statement*: needs continued in hospital monitoring tonight. [facility]. Coding Level of Care Code Acute Photographer Helper for g Fwd Diagnoses CAD (coronary artery disease) I25.10 DNR (do not resuscitate) Z66 Hypothyroidism E03.9 Hypertension I10 CVA (cerebral vascular accident) I63.9 Dyspnea R06.00 Acute respiratory distress R06.03
[2021-08-29] MEDS: gabapentin 300 mg Capsule 100 MG PO (22:35)
[2021-08-29] MEDS: potassium chloride ER 20 mEq Tablet 40 MEQ PO (22:36)
[2021-08-30] VITALS (8 sets, daily range): BP systolic 112–122; BP diastolic 61–72; PULSE 70–85; RESP 16–23; TEMP 36.4–36.7; O2SAT 93–99
[2021-08-30 06:42] LABS: Basophils # 0.1 10^3/uL (0.0-0.1); Basophils % 0.4 %; Eosinophils # 0.1 10^3/uL (0.0-0.8); Eosinophils % 0.8 %; Hematocrit 39.2 % (37.0-47.0); Hemoglobin 12.3 g/dL (11.5-15.3); Lymphocytes # 0.9 10^3/uL (0.8-4.8); Lymphocytes % 8.2 %; Mean Corpuscular HGB Conc 31.4 g/dL (30.0-36.0); Mean Corpuscular Hemoglobin 28.9 pg (28.0-34.0); Monocytes # 0.9 10^3/uL (0.2-0.9); Monocytes % 8.1 %; Neutrophils # 9.25 10^3/uL (1.8-7.7); Neutrophils % 82.1 %; Nucleated Red Blood Cells % 0 %; Platelet Count 244 10^3/cmm (130-400); Red Blood Count 4.26 10^6/uL (4.1-5.3); Red Cell Distribution Width 13.4 % (12.1-15.1); White Blood Count 11.3 10^3/uL (4.0-10.0)
[2021-08-30] MEDS: ipratropium-albuterol 3 mL Neb INHALATION (08:30)
[2021-08-30] MEDS: artificial tears Op Soln 15 mL Btl 1 DROP EYEAFF ×2 (09:11→17:02)
[2021-08-30] MEDS: pantoprazole 40 mg SDV IVP (09:11)
[2021-08-30] MEDS: levothyroxine 88 mcg Tablet PO (09:11)
[2021-08-30] MEDS: amlodipine 5 mg Tablet PO (09:11)
[2021-08-30] MEDS: gabapentin 300 mg Capsule 100 MG PO ×2 (09:11→17:02)
[2021-08-30] MEDS: sennosides-docusate Tablet 1 TAB PO ×2 (09:11→17:03)
--- NOTE | 2021-08-30 11:28 | PC.SOCIAL ---
Pg 2 IMM Explained to pt Pg 2 IMM. No questions voiced. Provided pt a copy. Initialed, dated, & timed a copy & placed in chart.
--- NOTE | 2021-08-30 13:24 | PC.NURSE ---
Report called to KATHERINE Mathew, at [facility].
--- NOTE | 2021-08-30 13:24 | PM.DCS ---
Discharge Providers Date of Admission: 08/27/21 15:30 Date of Discharge: August 30, 2021 Attending Provider at Admission: Magda Sommers MD Attending Provider at Discharge: Magda Sommers MD Primary Care Provider: Sriram Nunn Diagnoses at Discharge Discharge Diagnosis (1) CAD (coronary artery disease): Status: Acute (2) DNR (do not resuscitate): Status: Acute (3) Hypothyroidism: Status: Acute (4) Hypertension: Status: Acute (5) CVA (cerebral vascular accident): Status: Acute (6) Dyspnea: Status: Acute (7) Acute respiratory distress: Status: Acute Reason for Visit Reason for Visit: Altered mental status Brief History: Candy Chin is a 86 year old female with past medical history of coronary artery disease, CVA, hypertension, hypothyroidism with chronic right-sided hemiplegia from prior stroke presented to the emergency room concerns of altered mental status and difficulty breathing.? Patient is known to [facility] and was last seen normal earlier today.? [facility] records state that patient became at her head back with eyes closed and would not wake up.? Normally at baseline she says yes to any question asked.? They state that she is able to solve crossword puzzles and do some of her ADLs but now is confused.? Patient was reported to be coughing with mild increased work of breathing per EMS.? Saturation 87% on room air.? No known history of COPD or asthma.? This history was obtained from ER physician and group home documentation.? Patient is unable to provide any history.? Due to her previous stroke she only answers yes to any question that is asked. She is saturating 96 to 97% on 2 L nasal cannula at this time.? ABG 7.3 done on room air on arrival to ER.? Chest x-ray shows mild cardiomegaly with possible pulmonary congestion.? CT chest pending.? In the ER patient was given pharmacy normal saline bolus.? COVID swab negative, influenza swab negative.? Urine analysis unremarkable.? WBC 13.1.? Respiratory rate 20-22 CT head did not show any evidence of intracranial hemorrhage or mass-effect.? Moderate small vessel changes present.? Lacunar infarcts in left pinon radiata are present.? No acute intracranial findings. ER physician spoke to patient's son on the phone who stated patient was a DO NOT RESUSCITATE but was okay with intubation if needed for short-term and okay with bronchoscopy if needed.? I have tried to reach out to the family several times after that to discuss this but have not been able to get a hold of anybody.? Unable to leave a voicemail on the son's number.? [id number] number was also tried over the phone but unable to get a hold of anybody.? As of now patient will be DNR but okay to intubate as per previous discussion of ER physician with the patient's son.? He also told me patient's son lives in [place] and is physically not presenting [place]. Hospital Course Hospital Course Patient was admitted for aspiration pneumonia versus heart failure. She was given one-time Lasix as well to see if she would improve. She was treated with IV antibiotics and then transition to oral at discharge. Her breathing improved. She will be discharged on cefdinir azithromycin. Swallow evaluation was also completed and patient was placed on diet as per speech and swallow recommendations. CTA ruled out PE, sputum gram stain culture unable to obtain since patient did not cough up anything. She is stable on 2.5 L nasal cannula saturating 96 to 99%. Once the antibiotics complete hopefully she will be able to be weaned off of oxygen. Patient's urine was clear and no evidence of urinary tract infection. Echo was also done which showed EF 70%, grade 1 x 4 diastolic dysfunction. Trace mitral and aortic valve regurgitation. His white count was elevated at 13.1 and it is 11 today at discharge. It is continuing to trend down slightly. Patient has also clinically improved significantly. Also during this hospital stay CT abdomen pelvis was performed which showed large hiatal hernia with majority of the stomach contained in the chest and severe scoliotic curvature of spine. All of this was discussed over the phone with patient's family and they stated they were not interested in surgery at all for this patient. I also offered to have a surgery consult so the surgeon could speak to them and see what history to offer but they declined that as well. Patient is DNR/DNI. They would not like to put her mother through with surgery at this age. I think this is reasonable. Patient has done really well to hospital stay. I have also adjusted her home medications. Amlodipine has been cut down to 5 once daily, propanolol 10 once daily. I have stopped lisinopril 20 daily. Her blood pressure has been okay. I have also cut down gabapentin from 300 3 times daily to 100 3 times daily since patient was drowsy at first on that dose. Her primary care is to further adjust her medications after hospital discharge. Patient will be sent back to group home in stable condition today. She is doing really well. Off note at baseline she only says yes to any question that is asked of her. Sometimes she will nod her head signaling no but I have not heard her speak any other word apart from the word yes. This is due to her previous stroke. Physical Exam Narrative: General: Alert, laying in bed with eyes open response to yes to every question asked patient seen appearing comfortable On 2.5 L nasal cannula saturating 98% HEENT: Normocephalic, atraumatic, EOMI, Cardio: Regular rate rhythm, normal S1-S2, no murmurs Respiratory: Clear to auscultation today., no wheezes or gross rhonchi appreciated GI: Abdomen soft, nontender, nondistended, bowel sounds + Extremities: Trace bilateral lower extremity edema no cyanosis Skin: No skin breakdown on back, checked with nurse Urinary Catheter Management: De Jesus: Cath Placed During This Visit: yes Reason for Continuing Indwelling Catheter: Acute Urinary Retention or Obstruction Urinary Catheter Date of Insertion: 08/27/21 Urinary Catheter Time of Insertion: 17:28 Discharge Data Studies Completed and Pending Completed Studies During Hospitalization Category Date Time Status CT abdomen pelvis wo con [id number] Routine Cat Scan 08/28/21 07:[address] head wo con* [id number] Urgent Cat Scan 08/27/21 13:27 Completed CTA chest [CT angio chest [id number]] Stat Cat Scan 08/27/21 16:00 Completed XR chest 1V portable [id number] Urgent Exams 08/27/21 13:27 Completed CV. echo complete* [id number] Urgent Ultrasound 08/27/21 16:11 Completed Pending at discharge Category Date Time Status Sputum Culture and Gram Stain Stat Lab 08/29/21 19:25 Uncollected Urine Culture Stat Lab 08/29/21 19:25 Received Radiology Impressions Chest X-Ray 08/27/21 13:27 IMPRESSION: Questionable mild heart failure or fluid overload. Head CT 08/27/21 13:27 IMPRESSION: 1. No evidence of intracranial hemorrhage or mass effect. 2. Moderate small vessel changes. Moderate parenchymal volume loss. 3. Chronic lacunar infarcts in the LEFT pinon radiata. 4. No acute intracranial findings. Chest CTA 08/27/21 16:00 IMPRESSION: Negative for pulmonary embolism. No acute findings. Abdomen/Pelvis CT 08/28/21 07:37 IMPRESSION: 1. No acute abdominopelvic abnormality identified. 2. Large hiatal hernia with the majority of the stomach contained within the chest. 3. Prominent sigmoid diverticulosis without evidence of acute diverticulitis. 4. Severe scoliotic curvature of the spine. COMMENTS: Consistent with the [employer]'s Incidental Findings Committee white paper (J Am Bill Radiol 2018): Any incidental renal lesion less than 1 cm or classified as too small to characterize, or any incidental cystic renal lesion characterized as simple-appearing, is likely benign. No follow-up imaging is recommended for these lesions per consensus recommendations based on imaging criteria. Laboratory Results WBC 11.3 10^3/uL (4.0-10.0) H 08/30/21 04:45 RBC 4.26 10^6/uL (4.1-5.3) 08/30/21 04:45 Hgb 12.3 g/dL (11.5-15.3) 08/30/21 04:45 Hct 39.2 % (37.0-47.0) 08/30/21 04:45 MCV 92.0 fl (81-99) 08/30/21 04:45 MCH 28.9 pg (28.0-34.0) 08/30/21 04:45 MCHC 31.4 g/dL (30.0-36.0) 08/30/21 04:45 RDW 13.4 % (12.1-15.1) 08/30/21 04:45 Plt Count 244 10^3/cmm (130-400) 08/30/21 04:45 MPV 12.0 fL (7.4-10.4) H 08/30/21 04:45 Neut % (Auto) 82.1 % 08/30/21 04:45 Lymph % (Auto) 8.2 % 08/30/21 04:45 [place] % (Auto) 8.1 % 08/30/21 04:45 Eos % (Auto) 0.8 % 08/30/21 04:45 Baso % (Auto) 0.4 % 08/30/21 04:45 Neut # (Auto) 9.25 10^3/uL (1.8-7.7) H 08/30/21 04:45 Lymph # (Auto) 0.9 10^3/uL (0.8-4.8) 08/30/21 04:45 [place] # (Auto) 0.9 10^3/uL (0.2-0.9) 08/30/21 04:45 Eos # (Auto) 0.1 10^3/uL (0.0-0.8) 08/30/21 04:45 Baso # (Auto) 0.1 10^3/uL (0.0-0.1) 08/30/21 04:45 Nucleated RBC % (auto) 0 % 08/30/21 04:45 Nucleated RBCs # 0.0 /100WBC 08/30/21 04:45 Specimen Type Arterial 08/27/21 14:11 Sample Site Brachial, right 08/27/21 14:11 ABG pH 7.31 (7.35-7.45) L 08/27/21 14:11 ABG pCO2 57.5 mmHg (35-45) H 08/27/21 14:11 ABG pO2 74.5 mmHg (80.0-100.0) L 08/27/21 14:11 ABG HCO3 29.2 mmol/L (22-26) H 08/27/21 14:11 ABG O2 Saturation 95.0 08/27/21 14:11 ABG Base Excess 1.9 mmol/L (-2.0-2.0) 08/27/21 14:11 Harry Test Pos 08/27/21 14:11 A-a O2 Gradient 3.3 mmHg (5-10) L 08/27/21 14:11 Hematocrit 36.7 % (37-47) L 08/27/21 14:11 Hgb O2 Saturation 93.7 % (95-100) L 08/27/21 14:11 Carboxyhemoglobin 0.9 %THgb (0.4-20.1) 08/27/21 14:11 Methemoglobin 0.4 % (0.4-1.5) 08/27/21 14:11 Total Hemoglobin 12.0 g/dL (12-16) 08/27/21 14:11 Sodium 137.0 mmol/L (131-143) 08/27/21 14:11 Potassium 4.9 mmol/L (3.5-5.0) 08/27/21 14:11 Glucose 98.0 mg/dL (70-115) 08/27/21 14:11 Ionized Calcium 1.2 mmol/L (1.1-1.4) 08/27/21 14:11 O2 Delivery Device Nc 08/27/21 14:11 O2 Liters/Min 1.0 % 08/27/21 14:11 FiO2 24.0 % 08/27/21 14:11 Traffic Reporter ID Bd 08/27/21 14:11 Sodium 138 mmol/L (136-145) 08/29/21 04:36 Potassium 3.5 mmol/L (3.5-5.1) 08/29/21 04:36 Chloride 96 mmol/L (98-107) L 08/29/21 04:36 Carbon Dioxide 31 mmol/L (22-29) H 08/29/21 04:36 Anion Gap 14.5 (5-19) 08/29/21 04:36 BUN 13 mg/dL (8-23) 08/29/21 04:36 Creatinine 0.5 mg/dL (0.5-0.9) 08/29/21 04:36 GFR Calculation Not Reportable 08/29/21 04:36 Glucose 94 mg/dL (65-115) 08/29/21 04:36 POC Glucose 90 mg/dL (70-110) 08/27/21 13:47 Calculated Osmolality 286 mOsm/kg (285-295) 08/29/21 04:36 Calcium 8.5 mg/dL (8.5-10.5) 08/29/21 04:36 Total Bilirubin 0.3 mg/dL (0.15-1.2) 08/28/21 05:42 AST 23 U/L (0-32) 08/28/21 05:42 ALT 15 U/L (0-33) 08/28/21 05:42 Alkaline Phosphatase 115 IU/L (35-105) H 08/28/21 05:42 Ammonia 20 umol/L (11-51) 08/27/21 13:45 Troponin T Baseline 8 ng/L (0-10) 08/27/21 13:45 Troponin T 120 Minute 7.93 ng/L (0-10) 08/27/21 15:52 Delta Troponin T -0.07 ABS# (0-10) L 08/27/21 15:52 Troponin T Hi Sens 6Hr 9.36 ng/L (0-10) 08/27/21 21:35 Troponin T Hi Sens 6Hr Delta 1.36 ng/L (0-12) 08/27/21 21:35 NT-Pro-B Natriuret Pep 380 pg/mL (0-450) 08/27/21 13:45 Total Protein 6.8 g/dL (6.6-8.7) 08/28/21 05:42 Albumin 3.7 g/dL (3.5-5.2) 08/28/21 05:42 Globulin 3.1 g/dL (1.3-4.6) 08/28/21 05:42 Lipase 36 U/L (13-60) 08/27/21 13:45 TSH 17.29 uIU/mL (0.27-4.20) H 08/27/21 13:45 Free T4 1.10 ng/dL (0.82-1.77) 08/27/21 13:45 Urine Color Yellow (Yellow) 08/27/21 13:55 Urine Appearance Sl hazy (CLEAR) 08/27/21 13:55 Urine pH 6 (5-7) 08/27/21 13:55 Ur Specific [place] 1.020 (1.005-1.030) 08/27/21 13:55 Urine Protein Neg (Negative) 08/27/21 13:55 Urine Glucose (UA) Norm (Normal) 08/27/21 13:55 Urine Ketones Negative (Negative) 08/27/21 13:55 Urine Blood Neg (Negative) 08/27/21 13:55 Urine Nitrate Negative (Negative) 08/27/21 13:55 Urine Bilirubin Neg (Negative) 08/27/21 13:55 Urine Urobilinogen Norm mg/dL (Negative) 08/27/21 13:55 Ur Leukocyte Esterase Negative (Negative) 08/27/21 13:55 Urine RBC Rare /hpf (0-2) 08/27/21 13:55 Urine WBC Rare /hpf (0-5) 08/27/21 13:55 Ur Squamous Epith Cells 15-25 /hpf (0-5) H 08/27/21 13:55 Amorphous Sediment Not Reportable 08/27/21 13:55 Urine Bacteria Trace /hpf (NONE) 08/27/21 13:55 Nasal Influ A H1 2009 PCR Not detected (NOT DETECT) 08/27/21 14:10 Salicylates 1.2 mg/dL (3-10) L 08/27/21 13:45 Acetaminophen < 5.0 ug/mL (10-30) L 08/27/21 13:45 Adenovirus (PCR) Not detected (NOT DETECT) 08/27/21 14:10 C. pneumoniae DNA (PCR) Not detected (NOT DETECT) 08/27/21 14:10 Coronavirus 229E (PCR) Not detected (NOT DETECT) 08/27/21 14:10 Human Metapneumovir PCR Not detected (NOT DETECT) 08/27/21 14:10 Influenza A (H1) PCR Not detected (NOT DETECT) 08/27/21 14:10 Influenza A (H3) PCR Not detected (NOT DETECT) 08/27/21 14:10 Influenza Type A (PCR) Not detected (NOT DETECT) 08/27/21 14:10 Influenza Type B (PCR) Not detected (NOT DETECT) 08/27/21 14:10 M. pneumoniae (PCR) Not detected (NOT DETECT) 08/27/21 14:10 Parainfluenza 1 (PCR) Not detected (NOT DETECT) 08/27/21 14:10 Parainfluenza 2 (PCR) Not detected (NOT DETECT) 08/27/21 14:10 Parainfluenza 3 (PCR) Not detected (NOT DETECT) 08/27/21 14:10 Parainfluenza 4 (PCR) Not detected (NOT DETECT) 08/27/21 14:10 RSV Type A (PCR) Not detected (NOT DETECT) 08/27/21 14:10 RSV Type B (PCR) Not detected (NOT DETECT) 08/27/21 14:10 Entero/Rhino (PCR) Not detected (NOT DETECT) 08/27/21 14:10 SARS-CoV-2 (PCR) Not detected (NOT DETECT) 08/27/21 14:10 Vitals Last Vital Signs Temp 98.1 F 08/30/21 11:37 Pulse 80 08/30/21 11:37 Resp 16 08/30/21 11:37 BP 120/72 08/30/21 11:37 Pulse Ox 96 08/30/21 11:37 Discharge Plan Discharge Patient Disposition: Xfer SNF Condition: Stable Prescriptions: New amlodipine 5 mg Tablet 5 mg PO DAILY 30 Days Qty: 30 0RF gabapentin 300 mg Capsule 100 mg PO TID 30 Days Qty: 30 0RF cefdinir 300 mg capsule 300 mg PO BID 3 Days Qty: 6 0RF azithromycin 500 mg tablet 500 mg PO DAILY 3 Days Qty: 3 0RF potassium chloride 10 mEq tablet extended release 10 meq PO DAILY 30 Days Qty: 30 0RF propranolol 10 mg tablet 10 mg PO DAILY 30 Days Qty: 30 0RF Continued atorvastatin 40 mg tablet 40 mg PO QPM 0RF acetaminophen 325 mg Tablet 325 mg PO QID PRN (Reason: Pain) 0RF ipratropium-albuterol 0.5 mg-3 mg(2.5 mg base)/3 mL Solution For Nebulization 3 ml INHALATION Q6H PRN (Reason: Shortness Of Breath) 0RF Senna Plus 8.6-50 mg Tablet 1 tab-cap PO BID PRN (Reason: Constipation) 0RF levothyroxine 88 mcg Tablet 88 mcg PO DAILY 0RF Milk of Magnesia 400 mg/5 mL Suspension 15 ml PO DAILY PRN (Reason: Constipation) 0RF bisacodyl 10 mg Suppository 10 mg [place] Q24H PRN (Reason: Constipation) 0RF Enema 19-7 gram/118 mL Enema 118 ml [place] DAILY PRN (Reason: Constipation) 0RF bisacodyl 5 mg Tablet,Delayed Release (Dr/Ec) 20 mg PO DAILY PRN (Reason: Constipation) 0RF I-Ned 300 mcg-200 mg-27 mg-2 mg Tablet 1 tab PO DAILY 0RF Rx Instructions: administer after a meal Multi Vitamin 9 mg iron/15 mL Liquid 15 ml PO DAILY 0RF Artificial Tears (cmc) 1 % Drops 1 drp OPHTHALMIC (EYE) BID 0RF Discontinued lisinopril 20 mg Tablet 20 mg PO BID 0RF amlodipine 5 mg Tablet 5 mg PO BID 0RF propranolol 10 mg Tablet 10 mg PO BID 0RF aspirin 325 mg Tablet,Delayed Release (Dr/Ec) 325 mg PO DAILY 0RF gabapentin 300 mg Capsule 300 mg PO TID 0RF potassium chloride 20 mEq Tablet Extended Release 20 meq PO BID 0RF Discharge Orders: Discharge Order (Routine); Ordered 08/30/21 Ordered By: Magda Sommers Referrals: [facility] [Outside] Sriram Nunn [Primary Care Provider] - 4-7 days Discharge Activity: Resume usual activity and Oxygen as instructed Activity Restrictions/Additional Instructions: Please come back to hospital if worsening shortness of breath, fever, cough or abdominal pain. Follow up with PCP within 4-7 days of discharge. Continue on dysphagia level 1 diet Discharge Attestations Time Spent in Discharge Care*: less than 30 min Quality Metrics Clinical Quality Measures [ No reported AMI, CVA or VTE this stay] Coding Level of Care Code Acute Chg FW DC note Diagnoses CAD (coronary artery disease) I25.10 DNR (do not resuscitate) Z66 Hypothyroidism E03.9 Hypertension I10 CVA (cerebral vascular accident) I63.9 Dyspnea R06.00 Acute respiratory distress R06.03
[2021-08-30] MEDS: enoxaparin 40 mg/0.4 mL Syringe SUBCUT (17:02)
[2021-08-30] MEDS: atorvastatin 40 mg Tablet PO (17:03)
--- NOTE | 2021-08-30 18:11 | PC.NURSE ---
Patients IV removed prior today for anticipating of discharge early this evening to [facility]. [facility] informed us that it will be likely around 1999 when they can come get this patient. IV antibiotics scheduled and unable to administer due to lack of IV access.
--- NOTE | 2021-08-30 19:38 | PC.NURSE ---
Pt discharged and accompanied back to [facility] by EMS crew. Discharged packet and pt belongings sent with EMS. Pt awake on 3L oxygen via nasal canula with bright catheter in place per MD order.
== END 2021-08-30 19:30 | disposition skilled nursing facility (03) | DRG 178 ==
LOC: ER 18:00 → ICU 20:28 → MEDSURG 23:40
PROVIDERS: Admitting Provider Internal Medicine; Emergency Provider Emergency Medicine; PCP Physician Assistant; Visit Provider Internal Medicine
DX: J69.0 Pneumonitis due to inhalation of food and vomit (principal); I69.951 Hemiplegia and hemiparesis following unspecified cerebrovascular disease affecting right dominant side; I50.32 Chronic diastolic (congestive) heart failure; I25.10 Atherosclerotic heart disease of native coronary artery without angina pectoris; Z66 Do not resuscitate; I11.0 Hypertensive heart disease with heart failure; E03.9 Hypothyroidism, unspecified; F03.90 Unspecified dementia, unspecified severity, without behavioral disturbance, psychotic disturbance, mood disturbance, and anxiety; K44.9 Diaphragmatic hernia without obstruction or gangrene; M41.9 Scoliosis, unspecified
CPT/HCPCS: 36415; 36416; 36600; 51702; 70450; 71045; 71275; 74176; 80048; 80051; 80053; 80307; 81001; 82140; 82330; 82805; 82962; 83690; 83880; 84439; 84443; 84484; 85025; 87086; 87486; 87581; 87633; 92523; 92610; 93005; 93306; 94640; 94664; 96365; 96366; 96367; 96372; 96375; 99285; C9113; J0456; J0696; J1650; J1940; J2543; J7040; J7050; Q9967